=== PATIENT | female | born 1940 | race Caucasian/White ===

== ENCOUNTER 2018-04-10 15:53 | Emergency (ER) | payer MEDICARE ==
[2018-04-10] MEDS ORDERED: BACL-1 PO (16:24)
[2018-04-10] MEDS ORDERED: FURO-45 PO (16:24)
[2018-04-10] MEDS ORDERED: PANT40TA65 PO (16:24)
[2018-04-10] MEDS ORDERED: ACET500T68 PO (16:24)
[2018-04-10] MEDS ORDERED: IPRA0.2S8 IH (16:24)
[2018-04-10] MEDS ORDERED: RIVA15TA PO (16:24)
[2018-04-10] MEDS ORDERED: POTA20TA85 PO (16:24)
[2018-04-10] MEDS ORDERED: OXYB5TAB86 PO (16:24)
[2018-04-10] MEDS ORDERED: DIGO125T73 PO (16:24)
[2018-04-10] MEDS ORDERED: BUPR-126 PO (16:24)
[2018-04-10] MEDS ORDERED: hydrocodone (16:24)
[2018-04-10] MEDS ORDERED: ROSU20TA5 (16:24)
[2018-04-10] MEDS ORDERED: VERA180C10 (16:24)
--- NOTE | 2018-04-10 16:30 | ER Report ---
History and Physical Time Seen By MD: 16:00 Hx. of Stated Complaint: PT IS TRAVELING FROM [place]. GOT TO [facility]ENTER [place] AND FELT FUNNY. PTS STATES SHE HAS HAD 3 MINOR STROKES (LOURDES MENDES DO) HPI/ROS CHIEF COMPLAINT: sob and weak HISTORY OF PRESENT ILLNESS: PT From [place]. Traveling thru. states that at 230pm she started not feeling well in [place]. C/o of some sob in the car. no cp. Took a nap. Woke up just after passing [place] and felt more sob and generalized weakness. Pt has hx of 3 mini strokes in past so came to ED. On ed arrival pt is moving all extremities but states she feels generally weak, sob and mouth is dry. denies headache. Pt is on xeralto for afib. PT denies cp. Pt denies lung ds. REVIEW OF SYSTEMS: Constitutional: No fever, no chills. Eyes: No discharge. ENT: No sore throat. Cardiovascular: No chest pain, no palpitations. Respiratory: No cough, + shortness of breath. Gastrointestinal: No abdominal pain, no vomiting. Genitourinary: No hematuria. Musculoskeletal: No back pain. Skin: No rashes. Neurological: No headache. + generalized weakness (LOURDES MENDES DO) Home Meds Reported Medications Rosuvastatin Calcium (Rosuvastatin Calcium) 20 Mg Tablet, DAILY 04/10/18 [hydrocodone] No Conflict Check, 10-325 Y for pain 04/10/18 Pantoprazole Sodium (PANTOPRAZOLE SODIUM) 40 Mg Tablet.dr, 40 MG PO QDAY, TAB.SR 04/10/18 Furosemide (FUROSEMIDE) 20 Mg Tablet, 1 TAB PO DAILY, TAB 04/10/18 Oxybutynin Chloride (OXYBUTYNIN CHLORIDE) 5 Mg Tablet, 5 MG PO QDAY, TAB 04/10/18 Potassium Chloride (KLOR-CON M20) 20 Meq Tab.er.prt, 20 MEQ PO QDAY 04/10/18 Verapamil HCl (Verapamil Sr) 180 Mg Cap24h.pel, QDAY 04/10/18 Digoxin (DIGOXIN) 125 Mcg Tablet, 125 MCG PO 3x weekly 04/10/18 Rivaroxaban 15 Mg (XARELTO 15 MG) 15 Mg Tablet, 15 MG PO QDAY, TAB 04/10/18 Bupropion Hcl (WELLBUTRIN SR) 150 Mg Tablet.er, 150 MG PO QDAY, TAB 04/10/18 Baclofen (BACLOFEN) 10 Mg Tablet, 10 MG PO QID, #30 TAB 04/10/18 Acetaminophen (TYLENOL EXTRA STRENGTH) 500 Mg Tablet, 500 MG PO Y for prn h/a, TAB 04/10/18 Ipratropium [place] (IPRATROPIUM BROMIDE) 0.2 Mg/1 Ml Solution, 0.2 MG IH 04/10/18 Past Medical/Surgical History Pmhx: mi, htn, tia, afib, fibromyalgia Pshx: non contrib (LOURDES MENDES DO) Reviewed Nurses Notes: Yes (LOURDES MENDES DO) Smoking Status: Former Smoker Hx Substance Use Disorder: No Hx Alcohol Use: No (LOURDES MENDES DO) Constitutional Vital Sign - Last 24 Hours 04/10/18 04/10/18 04/10/18 04/10/18 16:00 16:01 16:16 16:27 Temp 98.7 Pulse 75 Resp 27 28 B/P (MAP) 134/76 134/83 (100) Pulse Ox 98 74 O2 Delivery Room Air O2 Flow Rate 3.0 04/10/18 04/10/18 04/10/18 04/10/18 16:30 16:45 17:00 17:15 Pulse 86 85 79 77 Resp 14 9 9 12 B/P (MAP) 126/70 (88) 108/67 (81) Pulse Ox 98 100 100 99 04/10/18 04/10/18 04/10/18 04/10/18 18:26 18:30 18:35 18:50 Pulse 74 68 63 Resp 8 B/P (MAP) 117/76 (90) Pulse Ox 100 97 100 04/10/18 04/10/18 04/10/18 04/10/18 19:05 19:35 19:50 20:05 Pulse 69 68 ? Resp 10 12 6 25 Pulse Ox 100 99 93 81 04/10/18 04/10/18 20:20 20:45 Pulse 67 85 Resp 26 16 B/P (MAP) 138/85 (102) Pulse Ox 90 95 O2 Delivery Nasal Cannula O2 Flow Rate 3 (LAKSHMI HEIN MD) Physical Exam General Appearance: The patient is alert, has no immediate need for airway protection and no signs of toxicity. Eyes: Pupils equal and round no pallor or injection, EOMI ENT: no pharyngeal erythema or exudates, Mucous membranes are moist Respiratory: There are no retractions, lungs are clear to auscultation. Cardiovascular: Regular rate and rhythm. pulses are equal and symmetrical Gastrointestinal: Abdomen is soft and non tender, no masses, bowel sounds normal, no guarding, no rigidity or rebound Neurological: Cranial nerves II-XII grossly intact, no sensory or motor loss, no pronator drifit, Upper and lower extremities 5/5 Skin: Warm and dry, no rashes. Musculoskeletal: Neck is supple non tender, no vertebral tenderness Extremities are nontender, non swollen and have full range of motion. DIFFERENTIAL DIAGNOSIS: After history and physical exam differential diagnosis was considered for PE, ID, altitude sickness, mini stroke (LAURORA,LOURDES V DO) Medical Decision Making Data Points Result Diagram: 04/10/18 1607 04/10/18 1607 Laboratory Hematology Test 04/10/18 16:07 04/10/18 18:28 04/10/18 19:58 Red Blood Count 4.24 M/uL (4.17-5.56) Mean Corpuscular Volume 96.5 fL (80.0-96.0) Mean Corpuscular Hemoglobin 33.8 pg (26.0-33.0) Mean Corpuscular Hemoglobin Concent 35.1 g/dL (32.0-36.0) Red Cell Distribution Width 13.5 % (11.5-14.5) Mean Platelet Volume 9.6 fL (7.2-11.1) Neutrophils (%) (Auto) 40.8 % (39.4-72.5) Lymphocytes (%) (Auto) 43.0 % (17.6-49.6) Monocytes (%) (Auto) 12.1 % (4.1-12.4) Eosinophils (%) (Auto) 3.3 % (0.4-6.7) Basophils (%) (Auto) 0.8 % (0.3-1.4) Nucleated RBC Relative Count (auto) 0.0 /100WBC Neutrophils # (Auto) 2.3 K/uL (2.0-7.4) Lymphocytes # (Auto) 2.4 K/uL (1.3-3.6) Monocytes # (Auto) 0.7 K/uL (0.3-1.0) Eosinophils # (Auto) 0.2 K/uL (0.0-0.5) Basophils # (Auto) 0.0 K/uL (0.0-0.1) Nucleated RBC Absolute Count (auto) 0.00 K/uL D-Dimer Quantitative (PE/DVT) 0.27 ug/ml (0-0.50) Sodium Level 140 mmol/L (137-145) Potassium Level 3.5 mmol/L (3.5-5.0) Chloride Level 95 mmol/L (98-107) Carbon Dioxide Level 35 mmol/L (22-31) Blood Urea Nitrogen 20 mg/dl (7-18) Creatinine 1.10 mg/dl (0.52-1.04) Glomerular Filtration Rate Calc 48.0 Random Glucose 101 mg/dl (75-110) Calcium Level 9.3 mg/dl (8.4-10.2) Total Bilirubin 0.4 mg/dl (0.2-1.3) Aspartate Amino Transf (AST/SGOT) 39 U/L (0-35) Alanine Aminotransferase (ALT/SGPT) 37 U/L (0-56) Alkaline Phosphatase 100 U/L (0-126) B-Type Natriuretic Peptide 252 pg/ml (0-100) Total Protein 7.3 g/dl (6.3-8.2) Albumin 4.2 g/dl (3.5-5.0) Digoxin Level 0.6 ng/ml Digoxin Last Dose Date unknown Digoxin Last Dose Time unknown Urine Color Yellow Urine Clarity Clear Urine pH 8.0 pH (4.8-9.5) Urine Specific [place] 1.005 Urine Protein Negative mg/dL (NEGATIVE) Urine Glucose (UA) Negative mg/dL (NEGATIVE) Urine Ketones Negative mg/dL (NEGATIVE) Urine Blood Trace intact (NEGATIVE) Urine Nitrite Negative (NEGATIVE) Urine Bilirubin Negative (NEGATIVE) Urine Urobilinogen 0.2 mg/dL (0.2-1.9) Urine Leukocyte Esterase Small (NEGATIVE) Urine RBC 1-4 /HPF (0-2/HPF) Urine WBC 0-2 /HPF (0-5/HPF) Urine Squamous Epithelial Cells Few /LPF (</=FEW) Urine Bacteria Negative /HPF (NONE-FEW) Urine Mucus Few /HPF (NONE-FEW) Troponin I < 0.012 ng/ml Chemistry Test 04/10/18 16:07 04/10/18 18:28 04/10/18 19:58 White Blood Count 5.6 k/uL (4.5-11.0) Red Blood Count 4.24 M/uL (4.17-5.56) Hemoglobin 14.3 g/dL (12.0-16.0) Hematocrit 40.9 % (34.0-47.0) Mean Corpuscular Volume 96.5 fL (80.0-96.0) Mean Corpuscular Hemoglobin 33.8 pg (26.0-33.0) Mean Corpuscular Hemoglobin Concent 35.1 g/dL (32.0-36.0) Red Cell Distribution Width 13.5 % (11.5-14.5) Platelet Count 212 K/uL (150-450) Mean Platelet Volume 9.6 fL (7.2-11.1) Neutrophils (%) (Auto) 40.8 % (39.4-72.5) Lymphocytes (%) (Auto) 43.0 % (17.6-49.6) Monocytes (%) (Auto) 12.1 % (4.1-12.4) Eosinophils (%) (Auto) 3.3 % (0.4-6.7) Basophils (%) (Auto) 0.8 % (0.3-1.4) Nucleated RBC Relative Count (auto) 0.0 /100WBC Neutrophils # (Auto) 2.3 K/uL (2.0-7.4) Lymphocytes # (Auto) 2.4 K/uL (1.3-3.6) Monocytes # (Auto) 0.7 K/uL (0.3-1.0) Eosinophils # (Auto) 0.2 K/uL (0.0-0.5) Basophils # (Auto) 0.0 K/uL (0.0-0.1) Nucleated RBC Absolute Count (auto) 0.00 K/uL D-Dimer Quantitative (PE/DVT) 0.27 ug/ml (0-0.50) Glomerular Filtration Rate Calc 48.0 Calcium Level 9.3 mg/dl (8.4-10.2) Total Bilirubin 0.4 mg/dl (0.2-1.3) Aspartate Amino Transf (AST/SGOT) 39 U/L (0-35) Alanine Aminotransferase (ALT/SGPT) 37 U/L (0-56) Alkaline Phosphatase 100 U/L (0-126) B-Type Natriuretic Peptide 252 pg/ml (0-100) Total Protein 7.3 g/dl (6.3-8.2) Albumin 4.2 g/dl (3.5-5.0) Digoxin Level 0.6 ng/ml Digoxin Last Dose Date unknown Digoxin Last Dose Time unknown Urine Color Yellow Urine Clarity Clear Urine pH 8.0 pH (4.8-9.5) Urine Specific [place] 1.005 Urine Protein Negative mg/dL (NEGATIVE) Urine Glucose (UA) Negative mg/dL (NEGATIVE) Urine Ketones Negative mg/dL (NEGATIVE) Urine Blood Trace intact (NEGATIVE) Urine Nitrite Negative (NEGATIVE) Urine Bilirubin Negative (NEGATIVE) Urine Urobilinogen 0.2 mg/dL (0.2-1.9) Urine Leukocyte Esterase Small (NEGATIVE) Urine RBC 1-4 /HPF (0-2/HPF) Urine WBC 0-2 /HPF (0-5/HPF) Urine Squamous Epithelial Cells Few /LPF (</=FEW) Urine Bacteria Negative /HPF (NONE-FEW) Urine Mucus Few /HPF (NONE-FEW) Troponin I < 0.012 ng/ml Coagulation Test 04/10/18 16:07 D-Dimer Quantitative (PE/DVT) 0.27 ug/ml Toxicology Test 04/10/18 16:07 Digoxin Level 0.6 ng/ml Digoxin Last Dose Date unknown Digoxin Last Dose Time unknown Urinalysis Test 04/10/18 18:28 Urine Color Yellow Urine Clarity Clear Urine pH 8.0 pH (4.8-9.5) Urine Specific [place] 1.005 Urine Protein Negative mg/dL (NEGATIVE) Urine Glucose (UA) Negative mg/dL (NEGATIVE) Urine Ketones Negative mg/dL (NEGATIVE) Urine Blood Trace intact (NEGATIVE) Urine Nitrite Negative (NEGATIVE) Urine Bilirubin Negative (NEGATIVE) Urine Urobilinogen 0.2 mg/dL (0.2-1.9) Urine Leukocyte Esterase Small (NEGATIVE) Urine RBC 1-4 /HPF (0-2/HPF) Urine WBC 0-2 /HPF (0-5/HPF) Urine Squamous Epithelial Cells Few /LPF (</=FEW) Urine Bacteria Negative /HPF (NONE-FEW) Urine Mucus Few /HPF (NONE-FEW) ([facility],LAKSHMI Cole MD) EKG/Imaging EKG Interpretation afib @ [address] head no new acute ds but old infarction is noted. (LOURDES MENDES DO) Imaging EXAMINATION: CTA of the Neck with IV contrast CTA of the Head with IV contrast HISTORY: Generalized weakness. History of stroke. COMPARISON: Noncontrast head CT from the same day. TECHNIQUE: Overlapping thin sections were obtained during a bolus of IV contrast from the aortic arch through the vertex. Reconstruction of the source data set includes multiplanar 2D in the sagittal and coronal planes, and 3D coronal thin slab MIP series. Policy And Planning Manager images have been stored on PACS. Stenosis of the internal carotid arteries are calculated using NASCET criteria. CONTRAST: 75 mL of IV Isovue-370 One of the following dose optimization techniques was utilized in the performance of this exam: Automated exposure control; adjustment of the mA and/ or kV according to the patient's size; or use of an iterative reconstruction technique. Specific details can be referenced in the facility's radiology CT exam operational policy. FINDINGS: Aortic arch and great vessels: Mild mixed plaque at the aortic arch. Mild plaque at the origin of the left subclavian artery and the brachiocephalic trunk without flow-limiting stenosis. Right CCA/ICA: Mild plaque at the origin of the right ICA with less than 20% stenosis. Calcified plaque along the right carotid siphon without flow-limiting stenosis. Left CCA/ICA: Mild plaque at the origin of the left common carotid artery without flow-limiting stenosis. Plaque causes mild stenosis of the left carotid bulb. There is a 20% stenosis of the origin of the left internal carotid artery. Calcified plaque along the left carotid siphon without flow-limiting stenosis. Vertebrobasilar: Mild calcified plaque of the intracranial left vertebral artery without flow-limiting stenosis. [place]: Right posterior communicating artery is hypoplastic. LOVE circulation: Negative. MCA circulation: Negative. EMBRYOLOGY PROFESSOR circulation: Negative. Additional non-angiographic findings: Mild centrilobular emphysematous changes in the lungs. Advanced multilevel disc degenerative changes in the cervical spine. IMPRESSION: No evidence of high-grade stenosis, dissection, thrombosis, or aneurysm of the head or neck arterial vasculature. Plaque causes a 20% stenosis of the origin of the left internal carotid artery and less than 20% stenosis of the origin of the right internal carotid artery. Report Dictated By: Yonny Mccauley MD at 04/10/2018 6:31 PM (LAKSHMI HEIN MD) ED Course/Re-evaluation Clinical Indication for ER IV: Hydration, IV Access ED Course 04/10/2018 4:44:[address] does not show an acute stroke. Pt is refusing to go to MRI/MRA due to claustraphobic. Explained that I can give her ativan/ valium but pt still refusing stating "that never works". I explained that that is a better study to rule out a ischemic stroke. Pt still refusing. Will order CTA head and neck 04/10/2018 5:25:46 pm PT appears more comfortable was very anxious on her arrival. Pt is off for CTA head/neck 04/10/2018 5:53:49 pm Pt signed out to Dr. Hein pending UA, second troponin, cxr and CTA results. Decision to Disposition Date: Apr 10, 2018 Decision to Disposition Time: 20:20 (LOURDES MENDES DO) ED Course I assumed care of this patient from Dr Mendes at shift change. Review of labs show a little dehydration with elevated BUN/Cr ratio. Her breathing was improved with oxygen. Discussed results of CT scans and chest x-ray with the patient. She had a repeat Troponin which was negative as well. Arranged oxygen for use until they return home. Decision to Disposition Date: Apr 10, 2018 Decision to Disposition Time: 20:29 (LAKSHMI HEIN MD) Depart Departure Latest Vital Signs Vital Signs Date Time Temp Pulse Resp B/P (MAP) Pulse Ox O2 Delivery O2 Flow Rate FiO2 04/10/18 20:45 85 16 138/85 (102) 95 Nasal Cannula 3 04/10/18 16:01 98.7 (LAKSHMI HEIN MD) Impression: Primary Impression: Shortness of breath associated with high altitude Additional Impression: Hypoxia Condition: Improved Disposition: HOME OR SELF-CARE Patient Instructions: Mountain Sickness (ED) Additional Instructions: Labs, EKG and imaging did not reveal any major problems. Your oxygen levels were low and we think that this is due to the increase elevation. Please use oxygen until you return home. Follow-up with your doctor upon returning home. Follow-up as needed during your trip at urgent care or ER if worsening. Problem Qualifiers Primary Impression: Shortness of breath associated with high altitude Encounter type: initial encounter Qualified Codes: T70.29XA - Other effects of high altitude, initial encounter LOURDES MENDES DO Apr 10, 2018 16:30 LAKSHMI HEIN MD Apr 10, 2018 18:36
[2018-04-10 16:35] LABS: PLATELET COUNT, AUTOMATED 212 K/uL (150-450)
--- NOTE | 2018-04-10 16:36 | EKG ---
FACILITY: [facility] [place] PATIENT NAME: JASMYN MARRERO : [id number] MR: [id number] V: [id number] EXAM DATE: ORDERING PHYSICIAN: LOURDES MENDES TECHNOLOGIST: Test Reason : Blood Pressure : / mmHG Vent. Rate : 078 BPM Atrial Rate : 113 BPM P-R Int : 000 ms QRS Dur : 082 ms QT Int : 374 ms P-R-T Axes : 000 007 064 degrees QTc Int : 426 ms Atrial fibrillation with premature ventricular or aberrantly conducted complexes Anterior infarct , age undetermined Abnormal ECG No previous ECGs available Confirmed by COLT GUTIERREZ ([id number]) on 04/10/2018 7:06:57 PM Referred By: Confirmed By:COLT GUTIERREZ
--- NOTE | 2018-04-10 16:36 | RADIOLOGY IMAGING REPORT ---
FACILITY: [facility] PATIENT NAME: Irma Osborne : 1940 MR: [id number] V: [id number] EXAM DATE: ORDERING PHYSICIAN: LOURDES MENDES TECHNOLOGIST: Location: [facility] [place] Patient: Irma Osborne : 1940 Visit/Account:[id number] Date of Sevice: 04/10/2018 EXAMINATION: CT head without IV contrast HISTORY: Weakness, history of stroke. COMPARISON: None. TECHNIQUE: Contiguous axial images were obtained from the skull base to the vertex without intraven ous contrast. Sagittal and coronal reformatted images are also submitted. One of the following dose optimization techniques was utilized in the performance of this exam: Autom ated exposure control; adjustment of the mA and/or kV according to the patient's size; or use of an i terative reconstruction technique. Specific details can be referenced in the facility's radiology C T exam operational policy. FINDINGS: The exam is mildly limited by patient motion artifact. Brain volume: Normal. Ventricles: Normal. Acute ischemic changes: None. Hemorrhage: No acute intracranial hemorrhage. Masses/edema: None. Pan-white: Small area of encephalomalacia with cortical thinning in the right temporoparietal region . White matter: Normal. Vessels: Calcified plaque of both carotid siphons. Extra-axial: Negative. Calvarium/scalp: Negative. Skull base/visualized face: Negative. Visualized sinuses/orbits: Previous lens surgery bilaterally. IMPRESSION: 1. No intracranial mass lesion or hemorrhage. No CT evidence of acute infarct. 2. Small chronic infarct in the right temporoparietal region. Report Dictated By: Teresa Mckeon MD at 04/10/2018 4:29 PM Report E-Signed By: Teresa Mckeon MD at 04/10/2018 4:32 PM WSN:[id number]
[2018-04-10] MEDS ORDERED: NS(*) 0.9% 1000 ML BAG 1,000 ML IV ONE (16:50)
[2018-04-10] MEDS ORDERED: LORazepam 2 MG/ML VIAL IVP ONE (17:15)
[2018-04-10] MEDS ORDERED: IOPAMIDOL 76% 100 ML INFUS BTL 100 ML ONE (17:25)
[2018-04-10] MEDS ORDERED: NS 0.9% 25 ML BAG 50 ML ONE (17:26)
--- NOTE | 2018-04-10 18:44 | RADIOLOGY IMAGING REPORT ---
FACILITY: [facility] [place] PATIENT NAME: Irma Osborne : 1940 MR: [id number] V: [id number] EXAM DATE: ORDERING PHYSICIAN: LOURDES MENDES TECHNOLOGIST: Location: [facility] [place] Patient: Irma Osborne : 1940 Visit/Account:[id number] Date of Sevice: 04/10/2018 CHEST PA AND LAT INDICATION: sob COMPARISON: None available FINDINGS: Heart size within normal limits. There is no focal infiltrate or lobar consolidation. There is no pneumothorax or pleural effusion. IMPRESSION: 1. No acute cardiopulmonary process. Report Dictated By: Jose Bond at 04/10/2018 6:40 PM Report E-Signed By: Jose Bond at 04/10/2018 6:40 PM WSN:[id number]
--- NOTE | 2018-04-10 18:52 | RADIOLOGY IMAGING REPORT ---
FACILITY: [facility] PATIENT NAME: Irma Osborne : 1940 MR: [id number] V: [id number] EXAM DATE: ORDERING PHYSICIAN: LOURDES MENDES TECHNOLOGIST: Location: Patient: Irma Osborne : 1940 Visit/Account:[id number] Date of Sevice: 04/10/2018 EXAMINATION: CTA of the Neck with IV contrast CTA of the Head with IV contrast HISTORY: Generalized weakness. History of stroke. COMPARISON: Noncontrast head CT from the same day. TECHNIQUE: Overlapping thin sections were obtained during a bolus of IV contrast from the aortic ar ch through the vertex. Reconstruction of the source data set includes multiplanar 2D in the sagittal and coronal planes, and 3D coronal thin slab MIP series. Dredge Pipe Installer images have been stored on PA CS. Stenosis of the internal carotid arteries are calculated using NASCET criteria. CONTRAST: 75 mL of IV Isovue-370 One of the following dose optimization techniques was utilized in the performance of this exam: Autom ated exposure control; adjustment of the mA and/or kV according to the patient's size; or use of an i terative reconstruction technique. Specific details can be referenced in the facility's radiology C T exam operational policy. FINDINGS: Aortic arch and great vessels: Mild mixed plaque at the aortic arch. Mild plaque at the origin of t he left subclavian artery and the brachiocephalic trunk without flow-limiting stenosis. Right CCA/ICA: Mild plaque at the origin of the right ICA with less than 20% stenosis. Calcified pl aque along the right carotid siphon without flow-limiting stenosis. Left CCA/ICA: Mild plaque at the origin of the left common carotid artery without flow-limiting danny nosis. Plaque causes mild stenosis of the left carotid bulb. There is a 20% stenosis of the origin of the left internal carotid artery. Calcified plaque along the left carotid siphon without flow-limiti ng stenosis. Vertebrobasilar: Mild calcified plaque of the intracranial left vertebral artery without flow-limit ing stenosis. [place] of [place]: Right posterior communicating artery is hypoplastic. LOVE circulation: Negative. MCA circulation: Negative. TAX EVALUATOR circulation: Negative. Additional non-angiographic findings: Mild centrilobular emphysematous changes in the lungs. Advanced multilevel disc degenerative changes in the cervical spine. IMPRESSION: No evidence of high-grade stenosis, dissection, thrombosis, or aneurysm of the head or neck arterial vasculature. Plaque causes a 20% stenosis of the origin of the left internal carotid artery and less than 20% sten osis of the origin of the right internal carotid artery. Report Dictated By: Yonny Mccauley MD at 04/10/2018 6:31 PM Report E-Signed By: Yonny Mccauley MD at 04/10/2018 6:48 PM WSN:[id number]
--- NOTE | 2018-04-10 18:52 | RADIOLOGY IMAGING REPORT ---
[place] [facility] [place] NAME: Irma Osborne : 1940 MR: [id number] V: [id number] EXAM DATE: ORDERING PHYSICIAN: LOURDES MENDES TECHNOLOGIST: Location: [facility] Patient: Irma Osborne : 1940 Visit/Account:[id number] Date of Sevice: 04/10/2018 EXAMINATION: CTA of the Neck with IV contrast CTA of the Head with IV contrast HISTORY: Generalized weakness. History of stroke. COMPARISON: Noncontrast head CT from the same day. TECHNIQUE: Overlapping thin sections were obtained during a bolus of IV contrast from the aortic ar ch through the vertex. Reconstruction of the source data set includes multiplanar 2D in the sagittal and coronal planes, and 3D coronal thin slab MIP series. Envelope Folding Machine Operator images have been stored on PA CS. Stenosis of the internal carotid arteries are calculated using NASCET criteria. CONTRAST: 75 mL of IV Isovue-370 One of the following dose optimization techniques was utilized in the performance of this exam: Autom ated exposure control; adjustment of the mA and/or kV according to the patient's size; or use of an i terative reconstruction technique. Specific details can be referenced in the facility's radiology C T exam operational policy. FINDINGS: Aortic arch and great vessels: Mild mixed plaque at the aortic arch. Mild plaque at the origin of t he left subclavian artery and the brachiocephalic trunk without flow-limiting stenosis. Right CCA/ICA: Mild plaque at the origin of the right ICA with less than 20% stenosis. Calcified pl aque along the right carotid siphon without flow-limiting stenosis. Left CCA/ICA: Mild plaque at the origin of the left common carotid artery without flow-limiting danny nosis. Plaque causes mild stenosis of the left carotid bulb. There is a 20% stenosis of the origin of the left internal carotid artery. Calcified plaque along the left carotid siphon without flow-limiti ng stenosis. Vertebrobasilar: Mild calcified plaque of the intracranial left vertebral artery without flow-limit ing stenosis. [place] of [place]: Right posterior communicating artery is hypoplastic. LOVE circulation: Negative. MCA circulation: Negative. CONCRETE PIPE MAKING MACHINE OPERATOR circulation: Negative. Additional non-angiographic findings: Mild centrilobular emphysematous changes in the lungs. Advanced multilevel disc degenerative changes in the cervical spine. IMPRESSION: No evidence of high-grade stenosis, dissection, thrombosis, or aneurysm of the head or neck arterial vasculature. Plaque causes a 20% stenosis of the origin of the left internal carotid artery and less than 20% sten osis of the origin of the right internal carotid artery. Report Dictated By: Yonny Mccauley MD at 04/10/2018 6:31 PM Report E-Signed By: Yonny Mccauley MD at 04/10/2018 6:48 PM WSN:[id number]
[2018-04-10 20:45] VITALS: BP 138/85
== END 2018-04-10 20:45 | disposition home or self-care (01) ==
LOC: ER 16:03
DX: E86.0 Dehydration (principal); R09.02 Hypoxemia; R06.02 Shortness of breath; T70.29XA Other effects of high altitude, initial encounter; I25.2 Old myocardial infarction; I48.2 Chronic atrial fibrillation; Z79.01 Long term (current) use of anticoagulants; M79.7 Fibromyalgia; I10 Essential (primary) hypertension; Z86.73 Personal history of transient ischemic attack (TIA), and cerebral infarction without residual deficits
CPT/HCPCS: 36416; 70450; 70496; 70498; 71046; 80162; 81001; 82948; 83880; 84484; 85025; 85379; 93005; 96361; 96374; 99285; J2060; J7030; Q9967; 82040; 82247; 82310; 82374; 82435; 82565; 82947; 84075; 84132; 84155; 84295; 84450; 84460; 84520